=== PATIENT | female | born 1955 | race Caucasian/White ===

== ENCOUNTER 2016-06-02 08:07 | Emergency (ER) | payer OTHER ==
[~2016-06-02] VITALS: Ht 170.2 cm; Wt 80.0 kg
[~2016-06-02 08:07] MED LIST: ACETAMINOPHEN-1 EAC1 PO; ALPRAZOLAM0.5 MG PO; AUGMENTIN875 MG PO; BUSPAR10 MG PO; CITALOPRAM HBR20 MG PO; CYMBALTA20 MG PO; CYMBALTA60 MG; DICYCLOMINE HCL10 MG PO; ENDOCET 5-3251 EACH PO; GABAPENTIN100 MG PO; HYDROXYZINE HCL25 MG; LITHIUM CARBON300 M1 PO; LYRICA150 MG PO; MIRTAZAPINE30 MG PO; MORPHINE SULFAT30 M2 PO; OXYCODONE-APAP1 EACH PO; PERCOCET 10/1 TABLET PO; PERCOCET 7.51 TABLET PO; PROZAC20 MG PO; QUETIAPINE FUM300 MG PO; QUETIAPINE FUMARATE; SEROQUEL300 MG PO; SEROQUEL50 MG PO; TRAZODONE HCL100 MG PO; XANAX0.5 MG PO; ZOFRAN ODT4 MG PO
[2016-06-02] MEDS ORDERED: OXYCODONE-APAP1 EACH PO (08:21)
[2016-06-02] MEDS ORDERED: LITHIUM CARBON300 MG PO (08:22)
[2016-06-02 10:14] VITALS: BP 119/88
[2016-06-02] MEDS ORDERED: ZITHROMAX Z-PA250 MG PO (10:19)
[2016-06-02] MEDS ORDERED: NAPROSYN500 MG PO (10:19)
[2016-06-02] MEDS ORDERED: TESSALON PERLE100 MG PO (10:19)
[2016-06-02] MEDS ORDERED: ROBITUSSIN NIG118 ML PO (10:19)
== END 2016-06-02 10:15 | disposition left against medical advice (07) ==
LOC: EME → EDBD 08:07 → EME 08:07
DX: J18.9 Pneumonia, unspecified organism (principal); R52 Pain, unspecified; G89.29 Other chronic pain; F17.200 Nicotine dependence, unspecified, uncomplicated; J45.909 Unspecified asthma, uncomplicated
CPT/HCPCS: 71020; 94640; 99281; 99283

== ENCOUNTER 2016-06-06 04:35 | Emergency (ER) | payer OTHER ==
[~2016-06-06] VITALS: Ht 170.2 cm; Wt 77.7 kg
[~2016-06-06 04:35] MED LIST changes: +LITHIUM CARBON300 MG PO; +NAPROSYN500 MG PO; +ROBITUSSIN NIG118 ML PO; +TESSALON PERLE100 MG PO; +ZITHROMAX Z-PA250 MG PO
[2016-06-06 05:27] LABS: HEMATOCRIT 31.2 % (36.0-46.0); MCH 31.3 PG (29.0-34.0); MCHC 34.3 G/DL (30.0-36.0); MCV 91.2 FL (83-99); MEAN PLAT.VOLUME 10.9 uM^3 (9.5-12.4); PLATELET COUNT 234 K/uL (156-360); RBC DIS.WIDTH-CV 13.3 % (11.8-14.6); RBC DIS.WIDTH-SD 43.3 % (39-53); RED BLOOD COUNT 3.42 M/uL (3.80-5.20)
[2016-06-06 05:39] LABS: CHLORIDE 104 mEq/L (99-109); POTASSIUM 4.1 mEq/L (3.7-5.4); SODIUM 137 mEq/L (136-147)
[2016-06-06 05:42] LABS: GLUCOSE 147 mg/dL (70-99)
[2016-06-06 05:43] LABS: ANION GAP 10 MEQ/L (2-14)
[2016-06-06 05:44] LABS: TOTAL BILIRUBIN 0.4 mg/dL (0.0-1.0)
[2016-06-06 05:45] LABS: ALKALINE PHOSPHATASE 83 IU/L (3-129); GFR ESTIMATE (CALCULATED) > 59 mL/min/
[2016-06-06 05:46] LABS: UREA NITROGEN (BUN) 8 mg/dL (9-23)
[2016-06-06 05:49] LABS: LIPASE 17 U/L (1.0-51.0)
[2016-06-06 05:55] LABS: TROP-I INTERPRETATION NEGATIVE; TROPONIN-I < 0.01 ng/mL (0.0-0.30)
[2016-06-06] MEDS ORDERED: LEVAQUIN750 MG PO (05:59)
[2016-06-06] MEDS ORDERED: MEDROL DOSEPAK4 MG PO (05:59)
[2016-06-06 06:17] VITALS: BP 115/75
== END 2016-06-06 06:19 | disposition home or self-care (01) ==
LOC: EME → EDBD 04:35 → EME 04:35
PROVIDERS: Emergency Medicine
DX: J44.0 Chronic obstructive pulmonary disease with (acute) lower respiratory infection (principal); J20.9 Acute bronchitis, unspecified; J44.1 Chronic obstructive pulmonary disease with (acute) exacerbation; D64.9 Anemia, unspecified; R51 Headache; J45.909 Unspecified asthma, uncomplicated; F31.9 Bipolar disorder, unspecified; G89.29 Other chronic pain; F17.200 Nicotine dependence, unspecified, uncomplicated
CPT/HCPCS: 71020; 80053; 83690; 84484; 85027; 87502; 93005; 94640; 99281; 99285; J0780; J1100; J1200; J1885; J7030

== ENCOUNTER 2016-12-24 14:13 | Emergency (ER) | payer OTHER ==
[~2016-12-24] VITALS: Ht 170.2 cm; Wt 71.8 kg
[~2016-12-24 14:13] MED LIST changes: +LEVAQUIN750 MG PO; +MEDROL DOSEPAK4 MG PO
[2016-12-24 15:53] LABS: HEMATOCRIT 37.7 % (36.0-46.0); MCH 30.4 PG (29.0-34.0); MCHC 33.7 G/DL (30.0-36.0); MCV 90.2 FL (83-99); MEAN PLAT.VOLUME 11.4 uM^3 (9.5-12.4); PLATELET COUNT 175 K/uL (156-360); RBC DIS.WIDTH-CV 13.2 % (11.8-14.6); RBC DIS.WIDTH-SD 44.4 % (39-53); RED BLOOD COUNT 4.18 M/uL (3.80-5.20); WHITE BLOOD COUNT 6.7 K/uL (4.1-10.2)
[2016-12-24 16:03] LABS: CHLORIDE 103 mEq/L (99-109); SODIUM 137 mEq/L (136-147)
[2016-12-24 16:04] LABS: GLUCOSE 91 mg/dL (70-99)
[2016-12-24 16:06] LABS: ANION GAP 8 MEQ/L (2-14)
[2016-12-24 16:08] LABS: GFR ESTIMATE (CALCULATED) > 59 mL/min/
[2016-12-24 16:09] LABS: UREA NITROGEN (BUN) 14 mg/dL (9-23)
[2016-12-24 18:33] VITALS: BP 111/79
== END 2016-12-24 18:36 | disposition home or self-care (01) ==
LOC: EME 14:13
PROVIDERS: Emergency Medicine
DX: G89.29 Other chronic pain (principal); M79.604 Pain in right leg; M54.2 Cervicalgia; M25.511 Pain in right shoulder; M79.7 Fibromyalgia; J45.909 Unspecified asthma, uncomplicated; F31.9 Bipolar disorder, unspecified; F17.200 Nicotine dependence, unspecified, uncomplicated
CPT/HCPCS: 80048; 85027; 99281; 99285; J3010

== ENCOUNTER 2017-01-19 13:49 | Emergency (ER) | payer OTHER ==
[~2017-01-19] VITALS: Ht 170.2 cm; Wt 71.9 kg
[2017-01-19] MEDS ORDERED: KEFLEX500 MG PO (14:50)
[2017-01-19 15:20] VITALS: BP 100/67
== END 2017-01-19 15:22 | disposition home or self-care (01) ==
LOC: EME 13:49
DX: S90.821A Blister (nonthermal), right foot, initial encounter (principal); S90.822A Blister (nonthermal), left foot, initial encounter; F17.200 Nicotine dependence, unspecified, uncomplicated
CPT/HCPCS: 99281; 99284

== ENCOUNTER 2017-04-13 19:36 | Emergency (ER) | payer OTHER ==
[~2017-04-13] VITALS: Ht 167.6 cm; Wt 68.9 kg
[~2017-04-13 19:36] MED LIST changes: +KEFLEX500 MG PO
[2017-04-13 21:02] LABS: HEMATOCRIT 37.3 % (36.0-46.0); MCH 31.2 PG (29.0-34.0); MCHC 34.6 G/DL (30.0-36.0); MCV 90.3 FL (83-99); PLATELET COUNT 180 K/uL (156-360); RBC DIS.WIDTH-CV 13.5 % (11.8-14.6); RBC DIS.WIDTH-SD 44.4 % (39-53); RED BLOOD COUNT 4.13 M/uL (3.80-5.20); WHITE BLOOD COUNT 9.4 K/uL (4.1-10.2)
[2017-04-13 21:10] LABS: CHLORIDE 104 mEq/L (99-109); POTASSIUM 3.5 mEq/L (3.7-5.4); SODIUM 138 mEq/L (136-147)
[2017-04-13 21:11] LABS: GLUCOSE 94 mg/dL (70-99)
[2017-04-13 21:13] LABS: ANION GAP 11 MEQ/L (2-14)
[2017-04-13 21:15] LABS: GFR ESTIMATE (CALCULATED) > 59 mL/min/
[2017-04-13 21:16] LABS: UREA NITROGEN (BUN) 17 mg/dL (9-23)
[2017-04-13 21:21] LABS: TROP-I INTERPRETATION NEGATIVE; TROPONIN-I 0.01 ng/mL (0.0-0.30)
[2017-04-14 01:13] LABS: ADD MIUA? YES; BILIRUBIN NEGATIVE; BLOOD SMALL; COLOR YELLOW ((YELLOW)); GLUCOSE (STRIP) NEGATIVE; KETONES NEGATIVE; LEUKOCYTES SMALL; NITRITE NEGATIVE; PROTEIN (STRIP) NEGATIVE; SPECIFIC GRAVITY 1.019 (1.000-1.030); UROBILINOGEN 0.2 MG/DL (0.2-1.0)
[2017-04-14 01:20] LABS: BACTERIA NONE SEEN /HPF; CALCIUM OXALATE CRYSTALS 4+ /HPF; EPITHELIAL CELLS 1+ /HPF; MUCUS NONE SEEN /LPF; RED BLOOD CELLS 0-5 /HPF (0-5); UCUL ADDED? YES
[2017-04-14] MEDS ORDERED: MACROBID100 MG PO (04:02)
[2017-04-14] MEDS ORDERED: ZOFRAN ODT4 MG PO (04:04)
[2017-04-14 04:08] VITALS: BP 127/68
== END 2017-04-14 04:10 | disposition home or self-care (01) ==
LOC: EME 19:36
PROVIDERS: Emergency Medicine
DX: M54.9 Dorsalgia, unspecified (principal); G89.29 Other chronic pain; N39.0 Urinary tract infection, site not specified; M79.89 Other specified soft tissue disorders; Z95.0 Presence of cardiac pacemaker; R07.9 Chest pain, unspecified; R11.0 Nausea; F17.200 Nicotine dependence, unspecified, uncomplicated
CPT/HCPCS: 71020; 74176; 80048; 81003; 84484; 85027; 87086; 93005; 99281; 99284